=== PATIENT | female | born 1935 | race Caucasian/White ===

== ENCOUNTER 2017-03-20 10:56 | Emergency (ER) | payer MEDICARE ==
[~2017-03-20] VITALS: Ht 144.8 cm; Wt 68.0 kg
[~2017-03-20 10:56] MED LIST: DIPH-423 PO; LORA0.5T PO; SOTA80TA69 PO; [UNRECOGNIZED DRUG - OTHER] PO
[2017-03-20 11:28] LABS: BASOPHILS % (AUTO) 0.3 % (0-1); EOSINOPHILS # (AUTO) 0.1 X10'3 (0-0.9); EOSINOPHILS % (AUTO) 1.4 % (0-6); HEMATOCRIT 41.1 % (35.0-45.0); HEMOGLOBIN 14.2 g/dl (12.0-16.0); LYMPHOCYTES # (AUTO) 1.3 X10'3 (1.1-4.8); LYMPHOCYTES % (AUTO) 23.6 % (21-51); MEAN CORPUSCULAR HEMOGLOBIN 31.6 PG (27.0-31.0); MEAN CORPUSCULAR HGB CONC 34.6 % (33.0-36.5); MEAN CORPUSCULAR VOLUME 91.2 FL (78-98); MEAN PLATELET VOLUME 7.3 FL (7.4-10.4); MONOCYTES # (AUTO) 0.3 X10'3 (0-0.9); MONOCYTES % (AUTO) 6.5 % (2-12); NEUTROPHILS # (AUTO) 3.6 X10'3 (1.8-7.7); NEUTROPHILS % (AUTO) 68.2 % (42-75); PLATELET COUNT 220 X10'3 (140-440); RED BLOOD COUNT 4.51 X10'6 (4.20-5.60); WHITE BLOOD COUNT 5.4 X10'3 (4.5-11.0)
[2017-03-20 11:38] LABS: PARTIAL THROMBOPLASTIN TIME 22 SECONDS (22-32); PROTHROMBIN TIME 9.9 SECONDS (9.0-12.0)
[2017-03-20 11:42] LABS: ALANINE AMINOTRANSFERASE 12 U/L (12-78); ALBUMIN 3.7 G/DL (3.4-5.0); ALBUMIN/GLOBULIN RATIO 0.9 (1.1-1.5); ALKALINE PHOSPHATASE 99 IU/L (46-116); ANION GAP 10 (8-16); ASPARTATE AMINO TRANSFERASE 19 U/L (10-37); BILIRUBIN,TOTAL 0.6 MG/DL (0.1-1.0); CHLORIDE 103 MMOL/L (99-107); GLUCOSE 120 MG/DL (70-104); SODIUM 137 MMOL/L (135-145); TOTAL CARBON DIOXIDE 23.6 MMOL/L (24-32); TOTAL PROTEIN 7.6 G/DL (6.4-8.2)
[2017-03-20 11:50] LABS: BLOOD UREA NITROGEN 6 MG/DL (7-18); BUN/CREATININE RATIO 8.6 (6.6-38.0); CALCIUM 9.3 MG/DL (8.5-10.1); eGFR 80 ML/MIN
[2017-03-20] MEDS ORDERED: sotalol 80mg tablet PO STA (12:28)
[2017-03-20] MEDS ORDERED: LOSA100T28 (12:31)
[2017-03-20] MEDS ORDERED: AMLO2.5T (12:31)
[2017-03-20] MEDS ORDERED: SERT50TA10 (12:31)
[2017-03-20] MEDS ORDERED: SOTA80TA (12:31)
[2017-03-20 13:30] VITALS: BP 171/67
== END 2017-03-20 13:32 | disposition home or self-care (01) ==
LOC: ER 10:56
DX: F41.9 Anxiety disorder, unspecified (principal); Z91.013 Allergy to seafood; Z79.899 Other long term (current) drug therapy
CPT/HCPCS: 36415; 71045; 80053; 84484; 85025; 85610; 85730; 93005; 99285